=== PATIENT | male | born 1990 | race Caucasian/White ===

== ENCOUNTER 2023-07-24 14:12 | Outpatient (CLI) | payer OTHER, SELFPAY | END 2023-07-24 14:13 | disposition home or self-care (01) | PROVIDERS: PCP Family Medicine; Visit Provider Family Medicine | DX: Z13.228 Encounter for screening for other metabolic disorders (principal); Z13.220 Encounter for screening for lipoid disorders; Z83.3 Family history of diabetes mellitus; Z83.42 Family history of familial hypercholesterolemia | CPT/HCPCS: 80048; 80061; 84460 ==

== ENCOUNTER 2025-02-16 09:48 | Outpatient (CLI) | payer BC, SELFPAY | END 2025-02-16 09:49 | disposition home or self-care (01) | LOC: NFLDREF 09:49 | PROVIDERS: PCP Family Medicine; Visit Provider Family Medicine | DX: Z13.6 Encounter for screening for cardiovascular disorders (principal) | CPT/HCPCS: 80061 ==